=== PATIENT | female | born 1945 | race Caucasian/White ===

== ENCOUNTER 2016-07-17 23:38 | Emergency (ER) | payer MEDICARE, BC ==
[~2016-07-17] VITALS: Ht 149.9 cm; Wt 43.1 kg
[2016-07-17] MEDS ORDERED: MEDR5TAB PO (23:57)
--- NOTE | 2016-07-18 00:19 | NUR ---
Patient discharged to home in stable conditon. Written and verbal after care instructions given. Patient verbalizes understanding of instructions. Ambulated from ER with stable gait. All belongings with patient.
[2016-07-18 00:21] VITALS: BP 130/69
== END 2016-07-18 00:22 | disposition home or self-care (01) ==
LOC: ER 23:51
DX: T14.8 Other injury of unspecified body region (principal); C44.90 Unspecified malignant neoplasm of skin, unspecified; F10.20 Alcohol dependence, uncomplicated; Z85.038 Personal history of other malignant neoplasm of large intestine; W57.XXXA Bitten or stung by nonvenomous insect and other nonvenomous arthropods, initial encounter; Y93.89 Activity, other specified; Y99.8 Other external cause status; Y92.89 Other specified places as the place of occurrence of the external cause
CPT/HCPCS: A4663

== ENCOUNTER 2016-10-08 16:41 | Emergency (ER) | payer MEDICARE, BC ==
[~2016-10-08] VITALS: Ht 149.9 cm; Wt 43.1 kg
[~2016-10-08 16:41] MED LIST: MEDR5TAB PO
--- NOTE | 2016-10-08 17:03 | NUR ---
PT IS IN ROOM #2B. DR IBARRA EVALUATED THE PT.
[2016-10-08 17:32] LABS: BASOPHILS # (AUTO) 0.1 K/uL (0.0-8.0); BASOPHILS % (AUTO) 0.6 % (0.0-2.0); CREATININE 0.8 mg/dL (0.6-1.3); EOSINOPHILS # (AUTO) 0.1 K/uL (0.0-0.7); EOSINOPHILS % (AUTO) 1.3 % (0.0-7.0); HEMATOCRIT 40.7 % (37-47); HEMOGLOBIN 13.4 G/DL (12.0-16.0); LYMPHOCYTES # (AUTO) 1.8 K/UL (0.8-4.8); LYMPHOCYTES % (AUTO) 20.1 % (20.5-51.5); MEAN CORPUSCULAR HEMOGLOBIN 28.7 UUG (27.0-31.0); MEAN CORPUSCULAR HGB CONC 33 g/dL (32.0-37.0); MEAN CORPUSCULAR VOLUME 86.9 FL (81.0-99.0); MONOCYTES # (AUTO) 0.7 K/UL (0.1-1.30); MONOCYTES % (AUTO) 7.3 % (0.0-11.0); NEUTROPHILS # (AUTO) 6.4 K/UL (1.8-8.9); NEUTROPHILS % (AUTO) 70.7 % (38.5-71.5); PLATELET COUNT (AUTO) 286 K/UL (150-450); RED BLOOD CELL COUNT(AUTO) 4.69 MIL/UL (4.2-5.4); WHITE BLOOD COUNT (AUTO) 9.1 K/UL (4.0-11.2)
[2016-10-08 17:47] LABS: BILIRUBIN,DIRECT 0.1 mg/dL (0.0-0.2); BILIRUBIN,TOTAL 0.2 mg/dL (0.2-1.0); TOTAL PROTEIN, SERUM 7.2 g/dL (6.4-8.2)
[2016-10-08 17:56] LABS: *BILIRUBIN,URIN NEGATIVE (NEGATIVE); *BLOOD, URINE Trace-intact (NEGATIVE); *CLARITY,URINE CLEAR (CLEAR); *COLOR,URINE LIGHT YELLOW (YELLOW); *KETONES,URINE NEGATIVE (NEGATIVE); *PROTEIN,URINE NEGATIVE (NEGATIVE); *UROBILINOGEN,URINE 0.2 E.U./dl (NORMAL); LEUKOCYTE ESTERASE ,URINE NEGATIVE (NEGATIVE); NITRITE, URINE NEGATIVE (NEGATIVE); UGLUCOSE NEGATIVE (NEGATIVE)
[2016-10-08 18:06] LABS: SQUAMOUS EPITHELIAL CELL,UR MODERATE /HPF (NONE SEEN); WBC,URINE 0-3 /HPF (0-3)
--- NOTE | 2016-10-08 18:08 | NUR ---
PT WAS D/C TO HOME. D/C INSTRUCTIONS GIVEN TO THE PT. GAIT IS STABLE. NO S/S OF ACUTE DISTRESS AT THIS TIME.
[2016-10-08 18:09] VITALS: BP 140/78
== END 2016-10-08 18:10 | disposition other institution (70) ==
LOC: ER 16:42
DX: R42 Dizziness and giddiness (principal); R10.9 Unspecified abdominal pain; Z85.038 Personal history of other malignant neoplasm of large intestine; Z90.49 Acquired absence of other specified parts of digestive tract; M19.90 Unspecified osteoarthritis, unspecified site
CPT/HCPCS: 36415; 70030-TC; 83690; 85025; 93005; A4663; J7030

== ENCOUNTER 2017-03-23 20:11 | Emergency (ER) | payer MEDICARE, BC ==
[~2017-03-23] VITALS: Ht 149.9 cm; Wt 45.4 kg
--- NOTE | 2017-03-23 20:45 | NUR ---
DR SCRUGGS AT BEDSIDE MADE PATIENT AWARE OF TEST RESULT WILL BE DC HOME.
--- NOTE | 2017-03-23 20:49 | NUR ---
Patient discharged to home in stable conditon. Written and verbal after care instructions given. Patient verbalizes understanding of instructions.
[2017-03-23 20:51] VITALS: BP 144/78
== END 2017-03-23 20:52 | disposition home or self-care (01) ==
LOC: ER 20:12
DX: B34.9 Viral infection, unspecified (principal); M19.90 Unspecified osteoarthritis, unspecified site; Z90.49 Acquired absence of other specified parts of digestive tract
CPT/HCPCS: 87400; A4663

== ENCOUNTER 2017-05-30 23:31 | Emergency (ER) | payer MEDICARE, BC ==
[~2017-05-30] VITALS: Ht 149.9 cm; Wt 45.4 kg
--- NOTE | 2017-05-31 00:12 | NUR ---
PT C/O FLU LIKE SYMPTOMS X2 DAYS, SPECIFICALLY: FEVER, GENERALIZED BODY ACHES, LETHARGY, SORE THROAT AND PRODUCTIVE COUGH.
--- NOTE | 2017-05-31 00:38 | NUR ---
DR CHAVEZ, PILI MD AT BEDSIDE FOR MSE.
--- NOTE | 2017-05-31 01:42 | NUR ---
Patient discharged to home in stable conditon. Written and verbal after care instructions given. Patient verbalizes understanding of instructions. Pt states she will continue to monitor her fever and for worsening symptoms. States she will wear a mask when she visits her in care home.
[2017-05-31 02:30] VITALS: BP 142/62
== END 2017-05-31 02:31 | disposition home or self-care (01) ==
LOC: ER 23:33
DX: J20.8 Acute bronchitis due to other specified organisms (principal); B97.89 Other viral agents as the cause of diseases classified elsewhere; Z90.49 Acquired absence of other specified parts of digestive tract; Z79.899 Other long term (current) drug therapy
CPT/HCPCS: 36415; 86403; 87400; A4663

== ENCOUNTER 2017-06-01 12:41 | Emergency (ER) | payer MEDICARE, BC ==
[~2017-06-01] VITALS: Ht 149.9 cm; Wt 45.4 kg
--- NOTE | 2017-06-01 13:24 | NUR ---
Patient discharged to home in stable conditon. Written and verbal after care instructions given. Patient verbalizes understanding of instructions. Stressed follow up with pmd.
== END 2017-06-01 13:26 | disposition home or self-care (01) ==
LOC: ER 12:41
DX: J20.9 Acute bronchitis, unspecified (principal); Z90.49 Acquired absence of other specified parts of digestive tract; Z88.1 Allergy status to other antibiotic agents; Z79.899 Other long term (current) drug therapy
CPT/HCPCS: 71045; A4663

== ENCOUNTER 2017-06-05 19:11 | Emergency (ER) | payer MEDICARE, BC ==
[~2017-06-05] VITALS: Ht 149.9 cm; Wt 45.4 kg
--- NOTE | 2017-06-05 20:40 | NUR ---
Dr. Lo at bedside for MSE.
--- NOTE | 2017-06-05 21:00 | NUR ---
Patient out of ER for xray.
--- NOTE | 2017-06-05 21:20 | NUR ---
Patient back to ER from xray.
--- NOTE | 2017-06-05 21:40 | NUR ---
Patient requests to be discharged earlier, reports she has to take care of her , spoke with .
--- NOTE | 2017-06-05 21:47 | NUR ---
Patient discharged to home in stable conditon. Written and verbal after care instructions given. Patient verbalizes understanding of instructions. Patient ambulated out of ER with steady gait, all belongings taken, no acute signs of distress, VSS.
[2017-06-05 21:48] VITALS: BP 146/76
== END 2017-06-05 21:45 | disposition home or self-care (01) ==
LOC: ER 19:11
DX: J06.9 Acute upper respiratory infection, unspecified (principal); Z88.1 Allergy status to other antibiotic agents; Z90.49 Acquired absence of other specified parts of digestive tract; Z79.899 Other long term (current) drug therapy; R06.02 Shortness of breath
CPT/HCPCS: 71046; 93005; A4663

== ENCOUNTER 2021-09-04 16:19 | Emergency (ER) | payer BC, MEDICARE ==
[~2021-09-04] VITALS: Ht 149.9 cm; Wt 44.9 kg
[2021-09-04 16:54] LABS: HEMATOCRIT 38.9 % (31.2-41.9); MEAN CORPUSCULAR HEMOGLOBIN 28.8 uug (24.7-32.8); MEAN CORPUSCULAR VOLUME 84.5 fL (75.5-95.3); PLATELET COUNT (AUTO) 228 K/uL (179-408)
[2021-09-04 17:13] LABS: BILIRUBIN,TOTAL 0.4 mg/dL (0.2-1.0); CREATININE 0.8 mg/dL (0.6-1.3); POTASSIUM 3.8 mmol/L (3.5-5.1); TOTAL PROTEIN, SERUM 7.5 g/dL (6.4-8.2)
[2021-09-04] MEDS ORDERED: LORAZEPAM 2 MG/1 ML VIAL IM ONE (17:15)
[2021-09-04] MEDS ORDERED: OLANZAPINE 10 MG VIAL IM ONE (17:15)
--- NOTE | 2021-09-04 19:00 | NUR ---
PT WAS EVALUATED BY DR GONZALEZ. PT WAS D/C'd TO HOME BY DR GONZALEZ. D/C INSTRUCTIONS GIVEN TO THE PT BY KATHIE LEMUS.
[2021-09-04 19:01] VITALS: BP 123/75
== END 2021-09-04 19:01 | disposition home or self-care (01) ==
LOC: ER 16:22
DX: R00.2 Palpitations (principal); Z85.038 Personal history of other malignant neoplasm of large intestine; Z90.49 Acquired absence of other specified parts of digestive tract; Z85.828 Personal history of other malignant neoplasm of skin; Z88.1 Allergy status to other antibiotic agents; I70.90 Unspecified atherosclerosis; M19.90 Unspecified osteoarthritis, unspecified site
CPT/HCPCS: 36415; 71045; 84484; 85025; 93005; A4663

== ENCOUNTER 2021-09-06 23:09 | Emergency (ER) | payer BC ==
[~2021-09-06] VITALS: Ht 167.6 cm; Wt 70.8 kg
--- NOTE | 2021-09-07 00:50 | NUR ---
PATIENT WAS CALLED TO BE TRIAGED BUT WAS NOT PRESENT IN THE WAITING ROOM OR OUTSIDE OF ER.
--- NOTE | 2021-09-07 01:15 | NUR ---
Patient was called to be triaged but was not present in the waiting room.
--- NOTE | 2021-09-07 01:30 | NUR ---
Patient was called to be triaged but was not present in the waiting room or outside of ER. PATIENT WAS NOT TRIAGED OR SEEN BY ERMD.
== END 2021-09-07 01:30 | disposition left against medical advice (07) ==
LOC: ER 23:09
DX: Z53.21 Procedure and treatment not carried out due to patient leaving prior to being seen by health care provider (principal)